=== PATIENT | male | born 1990 | race Two or more races ===

== ENCOUNTER 2018-07-01 22:56 | Emergency (ER) | payer OTHER, MEDICAID ==
[~2018-07-01] VITALS: Ht 172.7 cm; Wt 90.7 kg
[2018-07-01 23:02] VITALS: BP 133/77
[2018-07-01] MEDS ORDERED: KETOROLAC TROMETHAMINE INJ 60 MG/2 ML VIAL IM ONE ×2 (23:27→23:30)
== END 2018-07-01 23:35 | disposition home or self-care (01) ==
LOC: ER 23:00
DX: M54.5 Low back pain (principal)
CPT/HCPCS: 96372; 99283; A4606; J1885